=== PATIENT | male | born 1965 | race Caucasian/White ===

== ENCOUNTER 2017-12-28 09:15 | Outpatient (CLI) | payer BC ==
[~2017-12-28] VITALS: Ht 170.2 cm; Wt 72.6 kg
[2017-12-28] MEDS ORDERED: VORT10TA PO (09:43)
[2017-12-28] MEDS ORDERED: HYDR-3820 PO (09:43)
[2017-12-28] MEDS ORDERED: CITA40TA11 PO (09:43)
[2017-12-28] MEDS ORDERED: AMLO5TAB7 PO (09:43)
[2017-12-28] MEDS ORDERED: GABA-488 PO (09:43)
== END 2017-12-28 09:56 | disposition home or self-care (01) ==
LOC: PREOP 09:15
PROVIDERS: ATTEND Orthopaedic Surgery
DX: Z01.818 Encounter for other preprocedural examination (principal)

== ENCOUNTER 2018-01-02 06:10 | Day surgery (SDC) | payer BC ==
[~2018-01-02] VITALS: Ht 170.2 cm; Wt 72.6 kg
[~2018-01-02 06:10] MED LIST: AMLO5TAB7 PO; CITA40TA11 PO; GABA-488 PO; HYDR-3820 PO; VORT10TA PO
[2018-01-02 06:20] VITALS: BP 126/94
[2018-01-02] MEDS ORDERED: ceFAZolin 2 GM IV Premixed 50 ML IV ONE (06:30)
[2018-01-02] MEDS: LACTATED RINGERS 1,000 ML IV PRN ×2 (06:39→08:15)
[2018-01-02] MEDS ORDERED: BUP/EPI 0.5% 1:200,000 (SENSORCAINE) 30 ML VIAL ONE (06:39)
[2018-01-02] MEDS ORDERED: GENTAMICIN 40 MG/ML 2 ML INJ SDV ONE (06:40)
[2018-01-02] MEDS ORDERED: VANCOMYCIN 1000 MG/VIAL ONE (06:40)
[2018-01-02] MEDS ORDERED: LIDOCAINE PF 2% 5 ML (XYLOCAINE) VIAL ONE (06:51)
[2018-01-02] MEDS ORDERED: proPOfol 200 MG/20 ML (DIPRIVAN) VIAL IV ONE (06:51)
[2018-01-02] MEDS ORDERED: MIDAZOLAM 2 MG/2 ML (VERSED) VIAL ONE (06:59)
[2018-01-02] MEDS ORDERED: fentaNYL INJECTION 100 MCG/2 ML AMP ONE (06:59)
[2018-01-02] MEDS ORDERED: BACITRACIN 100,000 UNIT/NS 1000 ML POUR BOTTLE IR ONE ×2 (07:30)
[2018-01-02] MEDS ORDERED: DEXMEDETOMIDINE 200 MCG/2 ML (PRECEDEX) VIAL IV ONE (08:40)
[2018-01-02] MEDS ORDERED: ONDANSETRON 4 MG/2 ML (SDV) Z0FRAN ONE (08:40)
[2018-01-02] MEDS ORDERED: GLYCOPYRROLATE 0.2 MG/ML (ROBINUL) 2 ML VIAL ONE ×2 (08:40→08:52)
[2018-01-02] MEDS ORDERED: NS (IVPB) 250 ML ONE (08:40)
[2018-01-02] MEDS ORDERED: DEXAMETHASONE 10 MG/ML (DECADRON) 1 ML VIAL ONE (08:40)
[2018-01-02] MEDS ORDERED: SUCCINYLCHOLINE INJ 100 MG/5 ML SYR ONE (08:41)
[2018-01-02] MEDS ORDERED: ROCURONIUM 10 MG/ML 5 ML SYRINGE IV ONE (08:41)
[2018-01-02] MEDS ORDERED: NEOSTIGMINE 1 MG/ML 5 ML SYRINGE ONE (08:49)
--- NOTE | 2018-01-02 09:02 | Discharge Inst-Simple/Standard ---
Discharge Inst-Standard Discharge Medications New, Converted or Re-Newed RX: RX on Chart Patient Instructions/Follow Up Plan of Care/Instructions/FU: dont bend lift twist push pull 5 lb weight restriction keep incisions covered and dry Activity as Tolerated: No Discharge Diet: Regular Diet Return to The Hospital For: shortness of breath fever chills new numbness, tingling, weakness MATTHEW WEINBERG Jan 02, 2018 09:02
[2018-01-02] MEDS ORDERED: OXYC1TAB87 PO (09:04)
[2018-01-02] MEDS ORDERED: fentaNYL INJECTION 100 MCG/2 ML AMP IVP ONE (09:15)
[2018-01-02] MEDS ORDERED: morphine INJ 10 MG/ML 1ML (SYR OR VIAL) IVP ONE (09:15)
[2018-01-02] MEDS ORDERED: ONDANSETRON 4 MG/2 ML (SDV) Z0FRAN IVP PRN (09:15)
--- NOTE | 2018-01-02 09:30 | Diagnostic Imaging Report ---
Fluoroscopy INDICATION: Spinal cord stimulator insertion Fluoroscopic assistance was provided for Dr. Enamorado during his spinal cord stimulator procedure. 10 seconds of fluoroscopy time was utilized. A single spot film of the thoracolumbar spine was obtained. There is a dorsal stimulator device in place with the lead T10-11 disc space. IMPRESSION: Fluoroscopic assistance was provided for Dr. Enamorado. Dictated by: Dictated on workstation # [id number]
[2018-01-02 10:10] VITALS: BP 116/96
[2018-01-02] MEDS ORDERED: oxyCODONE/APAP 5/325MG (PERCOCET 5) TABLET ONE (10:26)
[2018-01-02 10:30] VITALS: BP 126/93
[2018-01-02] MEDS ORDERED: oxyCODONE/APAP 5/325MG (PERCOCET 5) TABLET PO ONE (10:30)
[2018-01-02 11:13] VITALS: BP 145/99
[2018-01-02 11:20] VITALS: BP 145/99
[2018-01-02] MEDS ORDERED: SEVOFLURANE (ULTANE) 15 ML INHAL SOLN ONE (13:19)
--- NOTE | 2018-01-02 14:08 | Anesthesia-General Post-Op ---
General Patient Condition Mental Status/LOC: Same as Preop Cardiovascular: Satisfactory Nausea/Vomiting: Absent Respiratory: Satisfactory Pain: Controlled Complications: Absent Post Op Complications Complications None Follow Up Care/Instructions Patient Instructions None needed. Anesthesia/Patient Condition Patient Condition Patient is doing well, no complaints, stable vital signs, no apparent adverse anesthesia problems. No complications reported per nursing. [place] [facility] [place]: Yes BHARATHI BROOKS CRNA Jan 02, 2018 14:08
--- NOTE | 2018-01-02 17:45 | OPERATIVE REPORT ---
DATE OF SERVICE: 01/02/2018 SURGEON: Jeovany Enamorado DO FINISH PATCHER: FRANCIA Hobson. This is a medically necessary procedure. Assistance was necessary for retraction of vital neurovascular structures. Without an home care assistant, the procedure would not be possible. PREOPERATIVE DIAGNOSES: 1. Neuropathic pain. 2. Lumbar radiculopathy. POSTOPERATIVE DIAGNOSES: 1. Neuropathic pain. 2. Lumbar radiculopathy. PROCEDURES PERFORMED: 1. Placement of thoracic paddle lead via thoracic laminotomies. 2. Placement of pulse generator. 3. Complex programming. COMPLICATIONS: None. SPECIMENS SENT: None. DRAIN PLACED: None. ANESTHESIA: General endotracheal tube anesthesia with local anesthesia. ESTIMATED BLOOD LOSS: Minimal. HISTORY OF PRESENT ILLNESS: The patient is a very pleasant 52-year-old gentleman who presented to me after a very successful trial. He did wish to proceed with placement of permanent stimulator. He understood the risks and benefits. OPERATION: The patient was identified by name on wrist band and brought to the holding area. His operative site was signed, consent was signed. SCDs were placed. Neuro monitoring was hooked up. Antibiotics were started. He was taken to the operating room theater and placed under general endotracheal tube anesthesia and then transferred to the operating room table in the prone position. He was prepped and draped in the usual sterile fashion. Formal timeout was conducted. AP x-ray was then used to nancy out the pedicles. I then infiltrated the skin and soft tissue with 0.5% Marcaine with epinephrine and made a midline thoracic incision. I proceeded with bilateral subperiosteal paraspinal muscular approach exposing the posterior elements of the targeted level. I then performed a T10-11 laminotomy. I gained access to the epidural space, I passed a Plusmo paddle lead into the midline position over the targeted T9 vertebral body. I anchored the lead into place. At this point on inspection of the terminal ends of the lead, the part of the lead that was attached to the battery. I noticed that one of them was fractured therefore, after discussing it with the [employer] rep it was decided to remove this paddle lead and replace it. We did so obtained a new paddle lead placed in the midline position and anchored it then made a right-sided flank incision developed a pocket bluntly with my finger. I then used the tunneler to tunnel the lead from the thoracic wound to the lumbar wound. I connected the battery final tightened. I verified adequate connection. I then buried the battery. I anchored the lead into the thoracic fascia. I irrigated both wounds, maintained hemostasis and I closed both wounds utilizing 0 Vicryl followed by 2-0 Vicryl followed by running 3-0 subcuticular stitch. I applied dressings, took the patient to the PACU area where he awoke without incident. She tolerated the procedure well. The plan at this time is to discharge the patient today. We will have him avoid any bending, twisting, pushing, pulling. Keep his wound clean and dry and change dressings daily. Please note instrumentation utilized was Plusmo spinal cord stimulator system, also scroll with the history of present illness after I state that the patient decided to proceed with placement of permanent stimulator. Please note that thoracic preoperative MRI did demonstrate a cystic lesion at approximately the T7-8 level. It had been discussed that we should remove that cyst; however, the trial demonstrated that the lead needed to be distal to that and therefore the mass occupying defect of the cyst was negligible. I decided not to do that T8 laminectomy because of that. Job ID: [id number] DocumentID: [id number] Dictated Date: 01/02/2018 09:38:12 Digital Product Specialist Date: 01/02/2018 17:44:30 Dictated By: JEOVANY ENAMORADO DO MTDCheikh
== END 2018-01-02 11:20 | disposition home or self-care (01) ==
LOC: SDC 06:10
PROVIDERS: ATTEND Orthopaedic Surgery
DX: M54.16 Radiculopathy, lumbar region (principal); G89.4 Chronic pain syndrome; I10 Essential (primary) hypertension; Z87.891 Personal history of nicotine dependence; F41.9 Anxiety disorder, unspecified; Z79.899 Other long term (current) drug therapy; Z11.2 Encounter for screening for other bacterial diseases
CPT/HCPCS: 87081